=== PATIENT | male | born 1980 | race Two or more races ===

== ENCOUNTER 2017-05-29 12:05 | Outpatient (CLI) | payer OTHER ==
[~2017-05-29 12:05] MED LIST: KETO10TA2 PO; ORPH100T PO
== END 2017-05-29 17:03 | disposition home or self-care (01) ==
LOC: RAD 501 12:05
DX: R05 Cough (principal)

== ENCOUNTER 2017-05-30 09:39 | Outpatient (CLI) | payer OTHER | END 2017-05-30 13:20 | disposition home or self-care (01) | LOC: RAD 09:39 | DX: J34.89 Other specified disorders of nose and nasal sinuses (principal); J01.31 Acute recurrent sphenoidal sinusitis; J34.2 Deviated nasal septum ==

== ENCOUNTER → 2018-01-07 | Emergency (ER) | payer OTHER ==
[~2018-01-07] VITALS: Ht 167.6 cm; Wt 72.6 kg
== END | disposition left against medical advice (07) ==
LOC: ER 04:35
DX: B34.9 Viral infection, unspecified (principal)

== ENCOUNTER 2019-04-27 18:48 | Emergency (ER) | payer OTHER ==
[~2019-04-27] VITALS: Ht 167.6 cm; Wt 74.8 kg
== END 2019-04-27 20:55 | disposition home or self-care (01) ==
LOC: ER 18:48
DX: R00.2 Palpitations (principal)

== ENCOUNTER 2019-09-07 21:02 | Emergency (ER) | payer OTHER ==
[~2019-09-07] VITALS: Ht 167.6 cm; Wt 74.8 kg
== END 2019-09-07 22:37 | disposition home or self-care (01) ==
LOC: ER 21:02
DX: S01.121A Laceration with foreign body of right eyelid and periocular area, initial encounter (principal); W22.8XXA Striking against or struck by other objects, initial encounter; Y93.89 Activity, other specified; Y92.018 Other place in single-family (private) house as the place of occurrence of the external cause; Y99.8 Other external cause status

== ENCOUNTER 2019-09-16 15:31 | Emergency (ER) | payer OTHER ==
[~2019-09-16] VITALS: Ht 170.2 cm; Wt 74.8 kg
== END 2019-09-16 16:24 | disposition home or self-care (01) ==
LOC: ER 15:31
DX: Z48.02 Encounter for removal of sutures (principal)

== ENCOUNTER 2019-12-28 20:17 | Emergency (ER) | payer OTHER ==
[~2019-12-28] VITALS: Ht 167.6 cm; Wt 68.0 kg
== END 2019-12-28 21:16 | disposition home or self-care (01) ==
LOC: ER 20:17
DX: Z48.02 Encounter for removal of sutures (principal)

== ENCOUNTER 2021-05-01 20:12 | Emergency (ER) | payer OTHER ==
[~2021-05-01] VITALS: Ht 167.6 cm; Wt 74.8 kg
[2021-05-02] MEDS ORDERED: LEVSIN/SL0.125 MG SL (02:52)
[2021-05-02] MEDS ORDERED: INTESTINEX680 M1 PO (02:52)
== END 2021-05-02 03:35 | disposition home or self-care (01) ==
LOC: ER 20:12
DX: K52.89 Other specified noninfective gastroenteritis and colitis (principal); Z91.09 Other allergy status, other than to drugs and biological substances

== ENCOUNTER 2022-04-19 23:57 | Emergency (ER) | payer OTHER ==
[~2022-04-19] VITALS: Ht 170.2 cm; Wt 75.7 kg
[~2022-04-19 23:57] MED LIST changes: +INTESTINEX680 M1 PO; +LEVSIN/SL0.125 MG SL
== END 2022-04-20 03:53 | disposition home or self-care (01) ==
LOC: ER 23:57
DX: R07.9 Chest pain, unspecified (principal)

== ENCOUNTER → 2022-05-27 16:26 | Outpatient (CLI) | payer OTHER | END | disposition home or self-care (01) | LOC: LAB 16:26 | DX: Z11.52 Encounter for screening for COVID-19 (principal); R06.02 Shortness of breath; R05.9 Cough, unspecified; J12.82 Pneumonia due to coronavirus disease 2019; Z20.822 Contact with and (suspected) exposure to COVID-19; Z86.16 Personal history of COVID-19; I07.1 Rheumatic tricuspid insufficiency; Z03.818 Encounter for observation for suspected exposure to other biological agents ruled out; M35.89 Other specified systemic involvement of connective tissue ==